=== PATIENT | female | born 1950 | race Caucasian/White ===

== ENCOUNTER 2017-02-08 09:48 | Day surgery (SDC) | payer OTHER ==
--- NOTE | 2017-02-05 20:27 | HP ---
HISTORY AND PHYSICAL: DATE OF ADMISSION/SURGERY: 02/08/17 ATTENDING PHYSICIAN: Dr. Harding (DICTATED BY LIA JAIMES) CHIEF COMPLAINT: Right knee pain. PROCEDURE: Right knee arthroscopy with partial lateral meniscectomy, possible chondroplasty, possible synovectomy. HISTORY OF PRESENT ILLNESS: Ms. Fine is a 66-year-old female with complaints of right knee pain involving the lateral aspect of her right knee. An MRI from 01/26/17 showed a lateral meniscus tear with parameniscal cyst along the joint line laterally. She has elected to proceed with surgery, which is scheduled for 02/08/17. PAST MEDICAL HISTORY: Breast cancer. PAST SURGICAL HISTORY: 1. Lumpectomy. 2. Right eyelid surgery. 3. D and C. MEDICATIONS: Vitamin D. ALLERGIES: No known drug allergies. FAMILY HISTORY: Colon cancer. SOCIAL HISTORY: She is a 66-year-old female. She lives alone. She does not smoke or use drugs. She uses occasional alcohol. REVIEW OF SYSTEMS: A complete 14-point review of systems was reviewed with the patient, is all negative and noncontributory. PHYSICAL EXAMINATION GENERAL: She is well developed, well nourished, no acute distress. VITAL SIGNS: She stands 5 feet 8 inch tall, weighs 130 pounds. Her blood pressure is 130/74 and her heart rate is 64. HEENT: Normocephalic, atraumatic. NECK: Supple. No palpable lymph nodes. CARDIO: Regular rate and rhythm. Strong S1 and S2. ABDOMEN: Soft, nontender, nondistended. MUSCULOSKELETAL: Right lower extremity skin is intact. She has a lateral mass along the joint line with a mildly positive Tinel's when you tap in that area. Positive Apley's, tenderness along the lateral joint line, negative Nahid. No varus or valgus instability, 0 to 130 degrees flexion. Overall neurovascularly intact. NEUROLOGIC: She is alert and oriented x3. Cranial nerves II through XII are intact. IMAGING STUDIES: A MRI of the right knee completed 01/26/17 shows a lateral meniscus tear with parameniscal cyst along the joint line laterally as well as some mild arthritis. ASSESSMENT AND PLAN: Ms. Fine is a 66-year-old female with complaints of right knee pain secondary to a lateral meniscus tear. She has elected to proceed with a right knee arthroscopy with partial lateral meniscectomy, possible chondroplasty, and possible synovectomy. The surgery is scheduled for 02/08/[address] Harding. She will follow up with Dr. Harding 10 to 14 days after the surgery. LIA JAIMES [id number]/[facility] #: [id number] [place]
[~2017-02-08 09:48] MED LIST: Buffered Lidocaine 1% SYR 3ML* 3 ML/SYR SYRINGE INTRADERM ONE; Dexamethasone IV* 4 MG/ML 1 ML (4 MG) IV SLOW PU ONE; Famotidine IV* 10 MG/ML 2 ML (20 mg) IV ONE
[2017-02-08] MEDS ORDERED: ceFAZolin 2 GM PREMIX(*) 2 GM/50 ML BAG IVPB ONE (10:05)
[2017-02-08] MEDS ORDERED: Famotidine IV* 10 MG/ML 2 ML (20 mg) ONE (10:05)
[2017-02-08] MEDS ORDERED: Dexamethasone IV* 4 MG/ML 1 ML (4 MG) ONE (10:05)
[2017-02-08] MEDS ORDERED: Midazolam* 1 MG/ML 5 ML VIAL (5 MG) ONE (10:28)
[2017-02-08] MEDS ORDERED: methylPREDNISolone ACETATE 80* 80 MG/ML 1 ML VIAL ONE (10:50)
[2017-02-08] MEDS ORDERED: EPINEPHrine AMP 1 MG/ML ONE (10:50)
[2017-02-08] MEDS ORDERED: Bupivacaine 0.5% SDV PF* 30 ML VIAL ONE (10:51)
[2017-02-08] MEDS ORDERED: Ondansetron INJ* 2 MG/ML VIAL ONE (11:00)
[2017-02-08] MEDS ORDERED: Lidocaine 2% PF * 5 ML VIAL ONE (11:00)
[2017-02-08] MEDS ORDERED: Propofol* 10 MG/ML 20 ML BTL IV PUSH ONE (11:00)
[2017-02-08] MEDS ORDERED: Ketorolac INJ* 30 MG/ML 1 ML VIAL ONE (11:00)
[2017-02-08] MEDS ORDERED: fentaNYL* 50 MCG/ML 5 ML VIAL (250 MCG VIAL) ONE (11:01)
[2017-02-08] MEDS ORDERED: Glycopyrrolate IV* 0.2 MG/ML 1 ML VIAL ONE (11:16)
[2017-02-08] MEDS ORDERED: Ondansetron INJ* 2 MG/ML VIAL IV PRN (11:25)
[2017-02-08] MEDS ORDERED: Scopolamine 1.5 mg* PATCH TRANSDERM PRN (11:25)
[2017-02-08] MEDS ORDERED: oxyCODONE/Acetamin 5/325 MG* TAB PO PRN (11:25)
[2017-02-08] MEDS ORDERED: DiMENhydriNATE IV* 50 MG/ML VIAL IV PUSH PRN (11:25)
[2017-02-08] MEDS ORDERED: fentaNYL* 50 MCG/ML 2 ML VIAL (100 MCG VIAL) IV PRN (11:25)
[2017-02-08 13:41] VITALS: BP 132/87
--- NOTE | 2017-02-09 07:22 | OP ---
DATE OF OPERATION: 02/08/17 [facility] DATE OF : 48 SURGEON: Nelia Harding MD ELECTRON[employer]CHNOLOGY DEPARTMENT CHAIR: LIA Lea. This certified pathology assistant was utilized throughout the procedure, during all portions of the procedure including but not limited to preparation of the leg, retraction with instruments, manipulation of the leg, and wound closure. ANESTHESIOLOGIST: Dr. Melchor Coleman. ANESTHESIA: General. PRE-OP DIAGNOSES: Right knee lateral meniscal tear and parameniscal cyst. POST-OP DIAGNOSES: Right knee lateral meniscal tear, parameniscal cyst, osteoarthritis. OPERATIVE PROCEDURE: Right knee arthroscopy with right partial lateral meniscectomy and parameniscal cyst rasping. INDICATIONS: Ms. Fine is a 66-year-old avid hiker with months of increasingly severe right lateral knee pain and a mass. Physical exam was consistent with lateral meniscal tear and parameniscal cyst. This was confirmed on MRI. The patient failed conservative treatment with activity modification, rest, and antiinflammatories. She elected to undergo right knee arthroscopy with partial lateral meniscectomy and parameniscal rasping. She understood she did have some osteoarthritis on plain radiographs. Informed consent was obtained from the patient. She understood the risks of the procedure included but were not limited to bleeding, infection, damage to nearby structures, need for further surgery, continued pain and cyst formation, stroke, heart attack, blood clot, and . She wished to proceed. The patient understood fully that the parameniscal cyst could continue after surgery, although we would attempt to rasp this intraoperatively. COMPLICATIONS: None. ESTIMATED BLOOD LOSS: Less than 25 cc. SPECIMEN: None. HARDWARE: None. INTRAOPERATIVE FINDINGS: Intraoperatively, the patient was noted to have a complex tear involving the majority of the anterior and middle lateral meniscus. This involved the white-red zone. This was linear as well as radial. Parameniscal cyst was not visualized though could be probed. This was easily rasped. The patient was noted to have some grade 3 and 4 Outerbridge cartilage changes in the lateral compartment. Medial patellofemoral compartments had grade 2 and 3 Outerbridge cartilage changes that were minimal. DESCRIPTION OF PROCEDURE: Ms. Fine was identified in the preanesthesia unit. Her right lower extremity was marked as a correct operative site. Informed consent was signed and placed in the chart. The patient was taken to the operating room and placed under general anesthesia without difficulty. Right lower extremity was prepped and draped in the usual sterile fashion. Preop time -out was made to correctly identify the patient's side and site. Appropriate perioperative antibiotics were given within 1 hour of incision. A standard anterolateral portal incision was made with a 15 blade and carried down to the capsule. The trocar was introduced. As soon as the light and water sources were turned on, there was immediate visualization of the suprapatellar pouch. A tour of the knee joint was performed. Patellofemoral compartment had no advanced arthritis or exposed subchondral bone. A small amount of cartilage fraying grade 2 and 3 involving the medial and lateral patellar facets. The medial gutter showed no loose body or significant plica. Medial compartment showed no obvious meniscal tear. Some minimal grade 2 and 3 Outerbridge cartilage changes of the medial femoral condyle. ACL and PCL appeared to be intact. The knee was placed in the figure-of-4 position. There was an obvious complex-type tear in the majority of the lateral meniscus body. Lateral femoral condyle and lateral tibial plateau had grade 3 and 4 Outerbridge cartilage changes with some exposed subchondral bone and cartilage fraying. These were grade 3 and 4 Outerbridge cartilage changes. Lateral gutter showed no obvious abnormality. Under direct visualization, a medial portal incision was made with a 15 blade. A probe was introduced and a second tour of the knee joint was performed. No further findings were noted. A shaver and radiofrequency ablation wand were used to remove the synovitis from the anterior knee joint. This allowed better visualization of the lateral compartment. The knee was placed in the figure-of- 4 position. A straight biter and shaver were used to perform partial lateral meniscectomy in the white-white and white-red zones. A smooth border of the meniscus was obtained. It was noted that there was linear as well as radial components to the meniscal tear, which was complex. A probe did show likely entry into the parameniscal cyst. A rasp was placed carefully in this space and used to roughen the edges of the meniscus and soft tissue/capsule. The knee was copiously irrigated with sterile saline. All instruments were carefully removed. Incisions were closed using 3-0 nylon suture. Intra- articular injection of 80 mg of Depo-Medrol and 6 cc of 0.25% Marcaine was placed in the knee joint. The patient's incision were closed using Xeroform, 4x4s, and Webril. Zion wrap and cold pack were placed over this. The patient's anesthesia was reversed without difficulty. She was taken to the PACU in stable condition. Intended weightbearing will be weightbearing as tolerated. Intended DVT prophylaxis will be aspirin. She will follow up in 2 weeks' time for suture removal. [id number]/[facility] #: [id number] MTDD
[2017-02-11] MEDS ORDERED: Scopolomine PATCH Remove* 1 NOTE MISC PATCH OFF ONE (11:27)
== END 2017-02-08 13:53 | disposition home or self-care (01) ==
LOC: OR 09:48
PROVIDERS: ATTEND Orthopaedic Surgery Adult Reconstructive Orthopaedic Surgery
DX: M23.200 Derangement of unspecified lateral meniscus due to old tear or injury, right knee (principal); M23.006 Cystic meniscus, unspecified meniscus, right knee; Z85.3 Personal history of malignant neoplasm of breast
CPT/HCPCS: J0171; J0690; J1040; J1100; J1885; J2250; J2405; J2704; J3010

== ENCOUNTER 2017-07-19 12:59 | Emergency (ER) | payer OTHER ==
--- NOTE | 2017-07-19 13:51 | RAD ---
Indication: Palpitations. Single frontal view of the chest performed at 1330 hours was reviewed. Comparison is made with previous exam dated July 12, 2015. No mediastinal shift is noted. Heart is of normal size and configuration. Lung israel appear clear. IMPRESSION: NO ACTIVE CARDIOPULMONARY DISEASE IS NOTED.
[2017-07-19 14:05] LABS: Hematocrit 39 % (35-47); Hemoglobin 13.5 g/dl (12.0-16.0); Mean Corpuscular HGB Conc 35 g/dl (31-36); Mean Corpuscular Hemoglobin 33 pg (27-31); Mean Corpuscular Volume 94 fL (80-97); Mean Platelet Volume 8 um3 (7.4-10.4); Red Blood Count 4.14 10^6/ul (4.0-5.4); Red Cell Distribution Width 13 % (10.5-15); White Blood Count 4.2 10^3/ul (3.5-10.8)
[2017-07-19 14:23] LABS: BUN/Creatinine Ratio 26.9 (8-20); Calcium 9.4 mg/dL (8.6-10.3); EGFR African American 94.7 (>60); EGFR Non-African American 73.7 (>60); Globulin 2.4 g/dL (2-4); Magnesium 2.2 mg/dL (1.9-2.7); Potassium 3.8 mmol/L (3.5-5.0); Total Bilirubin 0.9 mg/dL (0.2-1.0); Total Protein 6.4 g/dL (6.4-8.9)
[2017-07-19 14:55] LABS: TSH (Thyroid Stimulating Horm) 3.1 mcIU/mL (0.34-5.60)
[2017-07-19 15:00] LABS: Urine Bilirubin Negative (Negative); Urine Glucose Negative (Negative); Urine Nitrite Negative (Negative)
[2017-07-19 16:44] VITALS: BP 128/77
--- NOTE | 2017-07-21 08:13 | ED ---
Anirudh Barton Angela, scribed for Anthony Buenrostro MD on 07/19/17 at 1326 . Palpitations / Dysrhythmia - HPI Summary HPI Summary: This pt is a 66 y/o female presenting to [facility] c/o intermittent palpitations x1 month. Pt notes today she had palpitations and felt "faint" associated with it. At onset of her palpitations she was sitting at her computer. She describes the palpitations as fast and irregular. Pt denies chest pain, SOB, diplopia. She has a mild headache. There are no alleviating or aggravating factors. Pt states she was in the ED 10-15 years ago for tingling in her arm. - History of Current Complaint Chief Complaint: EDDysrhythmPalp Time Seen by Provider: 07/19/17 13:13 Hx Obtained From: Patient Onset/Duration: Lasting Weeks Timing: Intermittent Episodes Lasting: Character: Fast, Irregular Aggravating: Nothing Alleviating: Nothing - Allergy/Home Medications Allergies/Adverse Reactions: Allergies Allergy/AdvReac Type Severity Reaction Status Date / Time No Known Allergies Allergy Verified 02/08/17 10:14 PMH/Surg Hx/FS Hx/Imm Hx Endocrine/Hematology History: Denies: Hx Diabetes Cardiovascular History: Denies: Hx Hypertension, Hx Pacemaker/ICD Respiratory History: Denies: Hx Asthma GI History: Reports: Hx Irritable Bowel - , resolved Musculoskeletal History: Reports: Hx Arthritis - right knee Sensory History: Reports: Hx Contacts or Glasses - glasses Denies: Hx Hearing Aid Opthamlomology History: Reports: Hx Contacts or Glasses - glasses Psychiatric History: Denies: Hx Anxiety, Hx Panic Disorder - Cancer History Hx Chemotherapy: No Hx Radiation Therapy: No - Surgical History Surgery Procedure, Year, and Place: D&C; RIGHT EYELID SURGERY-MOLE/BASAL CELL REMOVED; LUMPECTOMY (LEFT BREAST) JUL 2016; Hx Anesthesia Reactions: No Infectious Disease History: No Infectious Disease History: Denies: Traveled Outside the [place] in Last 30 Days - Social History Alcohol Use: Daily Alcohol Amount: 1 DAILY Substance Use Type: Reports: None Smoking Status (MU): Never Smoked Tobacco Have You Smoked in the Last Year: No Review of Systems Negative: Fever, Chills Negative: Diplopia Positive: Palpitations. Negative: Chest Pain Negative: Shortness Of Breath Positive: Headache - mild All Other Systems Reviewed And Are Negative: Yes Physical Exam - Summary Physical Exam Summary: VITAL SIGNS: Reviewed. GENERAL: Patient is a well-developed and nourished female who is lying comfortable in the stretcher. Patient is not in any acute respiratory distress. HEAD AND FACE: No signs of trauma. No ecchymosis, hematomas or skull depressions. No sinus tenderness. EYES: PERRLA, EOMI x 2, No injected conjunctiva, no nystagmus. EARS: Hearing grossly intact. Ear canals and tympanic membranes are within normal limits. MOUTH: Oropharynx within normal limits. NECK: Supple, trachea is midline, no adenopathy, no JVD, no carotid bruit, no c- spine tenderness, neck with full ROM. CHEST: Symmetric, no tenderness at palpation LUNGS: Clear to auscultation bilaterally. No wheezing or crackles. CVS: Regular rate and rhythm, S1 and S2 present, no murmurs or gallops appreciated. ABDOMEN: Soft, non-tender. No signs of distention. No rebound no guarding, and no masses palpated. Bowel sounds are normal. EXTREMITIES: FROM in all major joints, no edema, no cyanosis or clubbing. NEURO: Alert and oriented x 3. No acute neurological deficits. Speech is normal and follows commands. SKIN: Dry and warm Triage Information Reviewed: Yes Vital Signs On Initial Exam: Initial Vitals Temp Pulse Resp BP Pulse Ox 96.1 F 74 16 134/74 98 07/19/17 13:04 07/19/17 13:04 07/19/17 13:04 07/19/17 13:04 07/19/17 13:04 Vital Signs Reviewed: Yes Diagnostics - Vital Signs Vital Signs Temp Pulse Resp BP Pulse Ox 07/19/17 13:04 96.1 F 74 16 134/74 98 - Laboratory Lab Results: Lab Results 07/19/17 07/19/17 07/19/17 Range/Units 13:52 13:52 13:52 WBC 4.2 (3.5-10.8) 10^3/ul RBC 4.14 (4.0-5.4) 10^6/ul Hgb 13.5 (12.0-16.0) g/dl Hct 39 (35-47) % MCV 94 (80-97) fL MCH 33 H (27-31) pg MCHC 35 (31-36) g/dl RDW 13 (10.5-15) % Plt Count 196 (150-450) 10^3/ul MPV 8 (7.4-10.4) um3 Neut % (Auto) 66.6 (38-83) % Lymph % (Auto) 26.7 (25-47) % [place] % (Auto) 5.1 (1-9) % Eos % (Auto) 1.0 (0-6) % Baso % (Auto) 0.6 (0-2) % Absolute Neuts (auto) 2.8 (1.5-7.7) 10^3/ul Absolute Lymphs (auto) 1.1 (1.0-4.8) 10^3/ul Absolute Monos (auto) 0.2 (0-0.8) 10^3/ul Absolute Eos (auto) 0 (0-0.6) 10^3/ul Absolute Basos (auto) 0 (0-0.2) 10^3/ul Absolute Nucleated RBC 0 10^3/ul Nucleated RBC % 0 Sodium 136 (133-145) mmol/L Potassium 3.8 (3.5-5.0) mmol/L Chloride 102 (101-111) mmol/L Carbon Dioxide 29 (22-32) mmol/L Anion Gap 5 (2-11) mmol/L BUN 21 (6-24) mg/dL Creatinine 0.78 (0.51-0.95) mg/dL Est GFR ( Amer) 94.7 (>60) Est GFR (Non-Af Amer) 73.7 (>60) BUN/Creatinine Ratio 26.9 H (8-20) Glucose 106 H (70-100) mg/dL Lactic Acid (0.5-2.0) mmol/L Calcium 9.4 (8.6-10.3) mg/dL Magnesium 2.2 (1.9-2.7) mg/dL Total Bilirubin 0.90 (0.2-1.0) mg/dL AST 14 (13-39) U/L ALT 11 (7-52) U/L Alkaline Phosphatase 66 (34-104) U/L Total Creatine Kinase 53 (10-223) U/L CK-MB (CK-2) 1.6 (0.6-6.3) ng/mL Troponin I 0.00 (<0.04) ng/mL B-Natriuretic Peptide 45 ( - 100) pg/mL Total Protein 6.4 (6.4-8.9) g/dL Albumin 4.0 (3.2-5.2) g/dL Globulin 2.4 (2-4) g/dL Albumin/Globulin Ratio 1.7 (1-3) TSH 3.10 (0.34-5.60) mcIU/mL Urine Color Urine Appearance Urine pH (5-9) Ur Specific Staples (1.010-1.030) Urine Protein (Negative) Urine Ketones (Negative) Urine Blood (Negative) Urine Nitrate (Negative) Urine Bilirubin (Negative) Urine Urobilinogen (Negative) Ur Leukocyte Esterase (Negative) Urine Glucose (Negative) 07/19/17 07/19/17 Range/Units 13:52 14:28 WBC (3.5-10.8) 10^3/ul RBC (4.0-5.4) 10^6/ul Hgb (12.0-16.0) g/dl Hct (35-47) % MCV (80-97) fL MCH (27-31) pg MCHC (31-36) g/dl RDW (10.5-15) % Plt Count (150-450) 10^3/ul MPV (7.4-10.4) um3 Neut % (Auto) (38-83) % Lymph % (Auto) (25-47) % [place] % (Auto) (1-9) % Eos % (Auto) (0-6) % Baso % (Auto) (0-2) % Absolute Neuts (auto) (1.5-7.7) 10^3/ul Absolute Lymphs (auto) (1.0-4.8) 10^3/ul Absolute Monos (auto) (0-0.8) 10^3/ul Absolute Eos (auto) (0-0.6) 10^3/ul Absolute Basos (auto) (0-0.2) 10^3/ul Absolute Nucleated RBC 10^3/ul Nucleated RBC % Sodium (133-145) mmol/L Potassium (3.5-5.0) mmol/L Chloride (101-111) mmol/L Carbon Dioxide (22-32) mmol/L Anion Gap (2-11) mmol/L BUN (6-24) mg/dL Creatinine (0.51-0.95) mg/dL Est GFR ( Amer) (>60) Est GFR (Non-Af Amer) (>60) BUN/Creatinine Ratio (8-20) Glucose (70-100) mg/dL Lactic Acid 0.9 (0.5-2.0) mmol/L Calcium (8.6-10.3) mg/dL Magnesium (1.9-2.7) mg/dL Total Bilirubin (0.2-1.0) mg/dL AST (13-39) U/L ALT (7-52) U/L Alkaline Phosphatase (34-104) U/L Total Creatine Kinase (10-223) U/L CK-MB (CK-2) (0.6-6.3) ng/mL Troponin I (<0.04) ng/mL B-Natriuretic Peptide ( - 100) pg/mL Total Protein (6.4-8.9) g/dL Albumin (3.2-5.2) g/dL Globulin (2-4) g/dL Albumin/Globulin Ratio (1-3) TSH (0.34-5.60) mcIU/mL Urine Color Straw Urine Appearance Clear Urine pH 7.0 (5-9) Ur Specific Staples 1.004 L (1.010-1.030) Urine Protein Negative (Negative) Urine Ketones Negative (Negative) Urine Blood Negative (Negative) Urine Nitrate Negative (Negative) Urine Bilirubin Negative (Negative) Urine Urobilinogen Negative (Negative) Ur Leukocyte Esterase Negative (Negative) Urine Glucose Negative (Negative) Result Diagrams: 07/19/17 13:52 07/19/17 13:52 Lab Statement: Any lab studies that have been ordered have been reviewed, and results considered in the medical decision making process. - Radiology Chest XR Xray Interpretation: No Acute Changes - IMPRESSION: No active cardiopulmonary disease is noted. ED physician has reviewed this radiology report and agrees. Radiology Interpretation Completed By: Radiologist - EKG 1313 Cardiac Rate: NL - 69 bpm EKG Rhythm: Sinus Rhythm EKG Interpretation: No ST elevation Course/Dx - Course Assessment/Plan: This pt is a 66 y/o female presenting to [facility] c/o intermittent palpitations x1 month. Pt notes today she had palpitations and felt "faint" associated with it. At onset of her palpitations she was sitting at her computer. She describes the palpitations as fast and irregular. Pt denies chest pain, SOB, diplopia. She has a mild headache. There are no alleviating or aggravating factors. Pt states she was in the ED 10-15 years ago for tingling in her arm. Test results without any significant abnormalities. Chest XR reveals no active cardiopulmonary disease is noted. EKG shows NSR without ST elevation. I believe the pt will benefit from outpatient management. Pt is asymptomatic. She will be discharged to follow up with PCP for outpatient management. Pt is hemodynamically stable, alert and oriented x3. - Diagnoses Differential Diagnosis/HQI/PQRI: Positive: Hypokalemia, Paroxymal SVT, V-Tach Provider Diagnoses: Arrhythmia, Palpitations Discharge - Discharge Plan Condition: Stable Disposition: HOME Patient Education Materials: Palpitations (ED) Referrals: Andi Rodriguez MD [Primary Care Provider] - Additional Instructions: Please follow up with your primary provider. The documentation as recorded by the Anirudh oakes Angela accurately reflects the service I personally performed and the decisions made by me, Anthony Buenrostro MD.
== END 2017-07-19 16:43 | disposition home or self-care (01) ==
LOC: ED 12:59
DX: I49.9 Cardiac arrhythmia, unspecified (principal); R00.2 Palpitations
CPT/HCPCS: 36415; 71010; 80053; 81003; 82550; 82553; 83605; 83735; 83880; 84443; 84484; 85025; 93005; 99282

== ENCOUNTER 2017-10-09 08:16 | Observation (INO) | payer MEDICARE, OTHER ==
[2017-10-09] MEDS ORDERED: NS 0.9% 1000 ML* 1,000 ML IV SCH (09:45)
[2017-10-09] MEDS ORDERED: ceFAZolin 2 GM PREMIX (*) 2 GM/50 ML BAG IVPB ONE (10:00)
[2017-10-09] MEDS ORDERED: ceFAZolin VIAL 1 GM in NS *SYRINGE * * 10 ML ONE (10:00)
[2017-10-09 10:05] LABS: ABS Basophils 0 10^3/ul (0-0.2); ABS Eosinophils 0 10^3/ul (0-0.6); ABS Lymphocytes 1.1 10^3/ul (1.0-4.8); ABS Monocytes 0.2 10^3/ul (0-0.8); ABS Nucleated RBC 0 10^3/ul; Eosinophil % 1.2 % (0-6); Hematocrit 39 % (35-47); Hemoglobin 13.8 g/dl (12.0-16.0); Lymphocyte % 33.6 % (25-47); Mean Corpuscular HGB Conc 35 g/dl (31-36); Mean Corpuscular Hemoglobin 33 pg (27-31); Mean Corpuscular Volume 94 fL (80-97); Mean Platelet Volume 7 um3 (7.4-10.4); Nucleated Red Blood Cells % 0.1; Platelet Count 195 10^3/ul (150-450); Red Blood Count 4.17 10^6/ul (4.0-5.4); Red Cell Distribution Width 13 % (10.5-15); White Blood Count 3.4 10^3/ul (3.5-10.8)
[2017-10-09 10:17] LABS: INR 0.97 (0.77-1.02)
[2017-10-09 10:18] LABS: EGFR Non-African American 63.9 (>60)
[2017-10-09] MEDS ORDERED: Naloxone* 0.4 MG/ML 1 ML VIAL ONE (11:04)
[2017-10-09] MEDS ORDERED: fentaNYL* 50 MCG/ML 2 ML VIAL (100 MCG VIAL) ONE (11:04)
[2017-10-09] MEDS ORDERED: Lidocaine 1% INJ* 10 MG/ML 30 ML SDV ONE (11:04)
[2017-10-09] MEDS ORDERED: Midazolam* 1 MG/ML 10 ML VIAL (10 MG) ONE (11:04)
[2017-10-09] MEDS ORDERED: Flumazenil* 0.1 MG/ML 5 ML MDV ONE (11:04)
[2017-10-09] MEDS ORDERED: Iohexol 300 (CONTRAST) 10 ML SDV ONE (11:57)
[2017-10-09] MEDS ORDERED: Acetaminophen TAB* 325 MG PO PRN (12:38)
[2017-10-09] MEDS ORDERED: oxyCODONE/Acetamin 5/325 MG* TAB PO PRN (12:38)
--- NOTE | 2017-10-09 12:48 | HP ---
CC: Andi Rodriguez MD; Parveen Henderson DO ADMISSION HISTORY AN PHYSICAL: DATE OF ADMISSION: 10/09/17 INDICATION FOR ADMISSION: Pacemaker implantation. HISTORY OF PRESENT ILLNESS: The patient is a 67-year-old female, who is consulted by Dr. Henderson back in July for episodes for palpitations and near syncope. The patient reports 2 episodes of near-s yncope, one occurred while she was standing at her computer and felt like she was going to pass out. Another occurred a couple of months later. The patient also describes episodes of palpitations. Th e patient was ordered to have an echocardiogram and an event monitor. Her echocardiogram showed norm al LV size and systolic function. No significant valvular abnormalities on her event monitor. She h ad an episode of prolonged bradycardia with a pause of 4.2 seconds. This occurred while she was awak e. Her heart rate went all the way down to 30 beats per minute. The patient was asymptomatic at raza t time. With the patient's symptoms and her documented prolonged bradycardia and 4.2 second pause, i t was recommend the patient undergo permanent pacemaker implantation. In speaking with the patient s he denies any fevers or chills. She denies any recent episodes of lightheadedness or dizziness. She denies any anginal type symptoms. PAST MEDICAL HISTORY: Significant for breast cancer for which she underwent treatment, also primary osteoarthritis. PAST SURGICAL HISTORY: Breast lumpectomy, colonoscopies. MEDICATIONS: None. ALLERGIES: None. FAMILY HISTORY: Diabetes and heart disease. Father of myocardial infarction. Mother of Pa rkinson's disease. SOCIAL HISTORY: She is single. She lives alone. 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 She denies tobacco or alcohol use. She does exercise regularly. PHYSICAL EXAMINATION VITAL SIGNS: Height is 5 feet 7 inches, weight is 128 pounds, heart rate is 60. Blood pressure 140/7 2, respiratory rate is 16, oxygen saturation 95% on room air. HEENT: Sclerae anicteric. Oropharynx is pink without erythema. Carotids are 2+ without bruits. NECK: JVD is normal. Thyroid is normal. LUNGS: Clear to auscultation bilaterally. No dullness to percussion. CARDIAC: S1 and S2 without any murmurs, rubs or gallops. PMI is normal. ABDOMEN: Soft, nontender, nondistended with normoactive bowel sounds. EXTREMITIES: Showed no edema. She has 2+ pulses throughout. NEUROLOGIC: The patient is awake, alert and oriented. She moves all 4 extremities equally. LABORATORY STUDIES: White count 3.4, other CBC is normal. Chemistries within normal limits. BUN 1 6, creatinine 0.88. IMPRESSION: This a 67-year-old female who has been having episodes of palpitations and had 2 near sy ncopal episodes that were quite concerning. Her event monitor did show a prolonged episode of bradyc ardia with a 4.2-second pause during the day. It was unclear whether the patient was sleeping at raza t time however it was 7 o'clock at night. RECOMMENDATIONS: The patient to undergo permanent pacemaker implantation for bradycardia and near sy ncope. Risks and benefits were described in great detail with the patient and discussed with Dr. Linda schaeffer. [id number]/[facility] #: [id number]
--- NOTE | 2017-10-09 15:25 | RAD ---
Indication: Status post pacemaker placement. Single frontal view of the chest performed at 1346 hours was reviewed. Comparison is made with previous exam dated July 19, 2017. No mediastinal shift is noted. Heart is of normal size and configuration. Pacemaker leads are in place. No pneumothorax is identified. Lungs are clear IMPRESSION: NO ACTIVE CARDIOPULMONARY DISEASE IS NOTED. HYPERINFLATED LUNG CARLSON ARE NOTED. NO DEFINITE PNEUMONIA IS IDENTIFIED.
[2017-10-09] MEDS ORDERED: Zolpidem TAB* 5 MG PO ONE (21:00)
[2017-10-09] MEDS: ceFAZolin 1 GM VIAL(*) 1 GM in NS 0.9% 50 ML* 50 ML IVPB SCH (21:13)
[2017-10-10] MEDS: ceFAZolin 1 GM VIAL(*) 1 GM in NS 0.9% 50 ML* 50 ML IVPB SCH (04:06)
[2017-10-10 08:09] VITALS: BP 110/71
--- NOTE | 2017-10-10 08:26 | RAD ---
INDICATION: Post pacemaker placement. COMPARISON: October 09, 2017 TECHNIQUE: Dual energy PA and routine lateral views of the chest were obtained. REPORT: Elevated lung volumes and patchy rarefaction of the mid to upper lung zone interstitial markings. Negative for pulmonary infiltrate, pleural effusion, pneumothorax. Unchanged position of the RIGHT atrial and RIGHT ventricular level pacemaker leads. Negative for cardiomegaly. Unremarkable central pulmonary vasculature and mediastinal contours. LEFT breast surgical clips. IMPRESSION: Stigmata of obstructive lung disease. No acute pulmonary or cardiac process evident.
--- NOTE | 2017-10-10 13:57 | OP ---
CC: Dr. Henderson * DATE OF OPERATION: 10/09/17 - ROOM #452 DATE OF : 48 SURGEON: Leno Do MD ANESTHESIA: Local anesthesia with conscious sedation. PRE-OP DIAGNOSES: Syncope, heart block. POST-OP DIAGNOSES: Syncope, heart block. OPERATIVE PROCEDURE: Dual-chamber pacemaker implantation. INDICATIONS: The patient is a 67-year-old female, who has had 2 near syncopal episodes that were unexplained. The patient had a recent event monitor, which showed a long run of non-conducted P waves with a ventricular pause of 4.2 seconds. Permanent pacemaker was recommended. ESTIMATED BLOOD LOSS: None. COMPLICATIONS: None. DESCRIPTION OF PROCEDURE: The patient was brought to the procedure room in a fasting state. Informed consent had been obtained prior to the procedure. All labs had been reviewed. The patient was placed supine on the procedure table. Her left deltopectoral area was cleaned and draped in the usual fashion. 1% lidocaine was used for local anesthesia. The axillary vein was entered by a modified Seldinger technique and a guidewire was placed. A second guidewire was placed under the same technique. A 4-cm incision was made in the pectoral area. Blunt dissection was carried on to the pectoral fascia. A small pocket was fashioned for the pacemaker. Over the first guidewire, an 8-Guyanese sheath introducer was placed through which a right ventricular lead was advanced at the RV apex. The right ventricular lead was a [employer], model [id number], serial number [id number]. The ventricular lead had an R-wave sensitivity of 9, impedance 996 ohms, threshold 1 volt at 0.4 msec. The ventricular lead was sutured at the pectoral fascia using 0 silk. Over the second guidewire, an 8-Guyanese sheath introducer was placed through which a right atrial lead was advanced to the high right atrium. The right atrial lead was a [employer], model [id number] , serial number [id number]. The atrial lead had a P-wave sensitivity of 3.4, impedance 600 ohms, threshold 0.9 volts at 0.4 msec. The pocket was flushed. A generator was attached appropriately to the atrial and ventricular lead. The generator was a [employer], model [id number], serial number [id number]. The device was placed in the pocket. The surgical incision was closed in 3 layers. The patient tolerated the procedure well with no complications. [id number]/[facility] #: [id number] AUGUSTINA
--- NOTE | 2017-10-10 21:14 | DS ---
CC: Dr. Henderson; Dr. Rodriguez * DISCHARGE SUMMARY: DATE OF ADMISSION: 10/09/17 DATE OF DISCHARGE: 10/10/17 REASON FOR ADMISSION: Syncope, sick sinus syndrome. HOSPITAL COURSE: This is a 67-year-old woman seen for syncopal episodes and was documented to have significant sinus pauses up to 4.2 seconds on an event monitor. Because of those findings, she was referred for pacemaker implantation with Dr. Do. She was admitted on 10/09/17, underwent pacemaker implantation with a [employer] MRI 2272 pacemaker. She was programed to DDD at 60 with a max upper tracking rate of 120, thresholds were adequate. Her chest x-ray revealed no evidence of pneumothorax and she is anticipating discharge this morning. PAST MEDICAL HISTORY: Includes breast cancer, status post breast lumpectomy. ALLERGIES: She has no allergies. MEDICATIONS: She takes no medications. PHYSICAL EXAMINATION: General: She is a well-developed, well-nourished female , in no apparent distress. No drainage from the pacemaker site. Vital Signs: Blood pressure 110/71, pulse is 60, temperature 97.7. Cardiac: S1 and S2 without murmurs, gallops, or rubs. Chest: Clear. Extremities: No edema. IMPRESSION: Ms. Fine has a history of near syncope related to sinus node dysfunction, is now status post pacemaker implantation. I reviewed her questions with her and the plan is as following; 1. She is to be discharged home later this morning. 2. She is to follow up with Dr. Do within 1 week. 3. She is to arrange for repeat pacemaker check in 4 to 6 weeks' time. She plans on traveling to [place] for the next 2 months and I encouraged her to work out the logistics of that evaluation with Dr. Do and Dr. Henderson. DISCHARGE MEDICATIONS: Include acetaminophen p.r.n. [id number]/[facility] #: [id number] MTDD
== END 2017-10-10 11:15 | disposition home or self-care (01) ==
LOC: CHICATH 08:16 → MEDTELE 12:38
PROVIDERS: ADMIT Specialist; ATTEND Specialist
PROC: 02H63JZ Insertion of Pacemaker Lead into Right Atrium, Percutaneous Approach (ICD-10-PCS; 2017-10-09)
PROC: 02HK3JZ Insertion of Pacemaker Lead into Right Ventricle, Percutaneous Approach (ICD-10-PCS; 2017-10-09)
PROC: 0JH606Z Insertion of Pacemaker, Dual Chamber into Chest Subcutaneous Tissue and Fascia, Open Approach (ICD-10-PCS; principal; 2017-10-09 10:00)
DX: I44.30 Unspecified atrioventricular block (principal); E78.5 Hyperlipidemia, unspecified; R42 Dizziness and giddiness; R55 Syncope and collapse; I49.5 Sick sinus syndrome
CPT/HCPCS: 36415; 71045; 71046; 80048; 85025; 85610; 85730; 93005; A9270-GY; G0378; J0690; J2250; J2310; J3010; Q9967

== ENCOUNTER 2020-01-08 11:07 | Emergency (ER) | payer MEDICARE, OTHER ==
--- OUTSIDE RECORDS SUMMARY | 2020-01-08 11:24 | XMS REPORT | Summary of Care ---
:1950 Author Organization [facility] Address [address] [place] [address] Care Team Providers Name Role Phone Pinky Earl MD Primary Care Provider Encounter Details Date Type Department Care Team Description 11/11/2019 Hospital Encounter [facility] Abnormal brain scan; [address] [facility] Migraine with aura, not intractable, with status migrainosus; 3rd Floor Mild cognitive impairment; [place], [place] Migraine with aura and with status migrainosus, not intractable; [id number] Cognitive impairment, mild, so stated; [phone] Abnormal finding of skull or head x-ray Allergies Not on Filedocumented as of this encounter (statuses as of 11/12/2019) Medications Not on filedocumented as of this encounter (statuses as of 11/12/2019) Active Problems Not on filedocumented as of this encounter (statuses as of 11/12/2019) Social History Tobacco Use Types Packs/Day Years Used Date Never Assessed Sex Assigned at Date Recorded Not on file Job Start Date Occupation Industry Not on file Not on file Not on file Travel History Travel Start Travel End No recent travel history available. documented as of this encounter Last Filed Vital Signs Not on filedocumented in this encounter Plan of Treatment Name Type Priority Associated Diagnoses Date/Time Cardiac Device Cardiac Services Routine 11/11/2019 4:00 PM (Implant) Check EST Health Maintenance Due Date Last Done Comments Hepatitis C Screening (B. 1950 3492-1030) MMR Vaccines (1 of 1 - Standard 1951 series) Varicella Vaccines (1 of 2 - 1951 2-dose childhood series) DTaP,Tdap,and Td Vaccines (1 - 1956 Tdap) Breast Cancer Screening 2 years 1999 Colon Cancer Screening 10 yrs 1999 Zoster Vaccines (1 of 2) 1999 Osteoporosis Screening 2 yr 2014 Pneumococcal Vaccine: 65+ Years (1 2014 of 2 - PCV13) Influenza Vaccine 07/01/2019 HIB Vaccines Aged Out No longer eligible based on patient's age to complete this topic Hepatitis A Vaccines Aged Out No longer eligible based on patient's age to complete this topic Hepatitis B Vaccines Aged Out No longer eligible based on patient's age to complete this topic IPV Vaccines Aged Out No longer eligible based on patient's age to complete this topic Pneumococcal Vaccine: Pediatrics Aged Out No longer eligible based on (0 to 5 Years) and At-Risk patient's age to complete this Patients (6 to 64 Years) topic documented as of this encounter Implants Implanted Type Area Grounds Person Device Shelf Model / Identifier Expiration Date Serial / Lot Lead-10/09/2017 Lead [employer] [id number] / Implanted: 10/09/2017 (Quantity not on file) [employer] [id number] / Description:Atrial lead Lead-10/09/2018 Lead [employer], [employer]ENDRIL MRI [id number] / Implanted: 10/09/2018 (Quantity not on file) INC [id number] / Description:V lead Pacemaker-10/09/2017 Pacemaker [employer], ASSURITY MRI 2272 / Implanted: 10/09/2017 (Quantity not on file) [id number] / Description:Implanted by Dr. Ed Do in [facility] documented as of this encounter Procedures Procedure Name Priority Date/Time Associated Comments Diagnosis MR ANGIOGRAPHY HEAD Routine 11/11/2019 4:55 Abnormal brain scan Results for this WITH AND WITHOUT PM EST Migraine with aura procedure are in CONTRAST [id number] and with status the results migrainosus, not section. intractable Cognitive impairment, mild, so stated Abnormal finding of skull or head x-ray MR BRAIN WITH AND Routine 11/11/2019 4:55 Abnormal brain scan Results for this WITHOUT CONTRAST PM [place] [id number] not intractable, the results with status section. migrainosus Mild cognitive impairment CARDIAC DEVICE Routine 11/11/2019 4:00 (IMPLANT) CHECK PM EST documented in this encounter Results MR Angiography Head with and without Contrast (11/11/2019 4:55 PM EST) Specimen Impressions Performed At IMPRESSION: [facility] 1. Major intracranial cerebral arteries demonstrate no proximal flow-limiting stenosis or occlusion. There is no aneurysm. Narrative Performed At MR ANGIOGRAPHY HEAD WITH AND WITHOUT CONTRAST [id number] [facility] INDICATION: 69 years Female. Migraine with aura and with status migrainosus, not intractable ABNORMAL BRAIN SCAN; Cognitive impairment, mild, so stated COMPARISON: No prior studies for comparison. TECHNIQUE: MRA of the head was performed using 3-D asct-xw-ioocfr technique without and with gadolinium intravenous contrast. 5.5 mL Gadavist IV contrast administered. 3-D MIP reconstruction was performed in multiple projections. FINDINGS: Suboptimal study with motion artifact limiting evaluation. Intracranial internal carotid artery segments are patent. Middle cerebral arteries are patent bilaterally. Anterior cerebral arteries are patent bilaterally. Anterior communicating artery is patent. Left posterior communicating artery is formed and patent. Right posterior communicating artery is formed and patent. Posterior cerebral arteries are patent bilaterally. Vertebral arteries are patent bilaterally. Basilar artery is patent. There is no aneurysm. Procedure Note Interface, Received Via [employer] - 11/11/2019 5:58 PM EST MR ANGIOGRAPHY HEAD WITH AND WITHOUT CONTRAST [id number] INDICATION: 69 years Female. Migraine with aura and with status migrainosus, not intractable ABNORMAL BRAIN SCAN; Cognitive impairment, mild, so stated COMPARISON: No prior studies for comparison. TECHNIQUE: MRA of the head was performed using 3-D hnww-jo-nggmac technique without and with gadolinium intravenous contrast. 5.5 mL Gadavist IV contrast administered. 3-D MIP reconstruction was performed in multiple projections. FINDINGS: Suboptimal study with motion artifact limiting evaluation. Intracranial internal carotid artery segments are patent. Middle cerebral arteries are patent bilaterally. Anterior cerebral arteries are patent bilaterally. Anterior communicating artery is patent. Left posterior communicating artery is formed and patent. Right posterior communicating artery is formed and patent. Posterior cerebral arteries are patent bilaterally. Vertebral arteries are patent bilaterally. Basilar artery is patent. There is no aneurysm. IMPRESSION: 1. Major intracranial cerebral arteries demonstrate no proximal flow- limiting stenosis or occlusion. There is no aneurysm. Performing Organization Address City/State/Zipcode Phone Number [facility] [address] [place] [address] MR Brain with and without Contrast (11/11/2019 4:55 PM EST) Specimen Impressions Performed At IMPRESSION: [facility] 1. There is no mass, hemorrhage, or acute infarct. There are nonspecific scattered small foci of the loida, cerebral deep and subcortical white matter, which may be compatible with mild/moderate chronic ischemic microvascular changes. Underlying migraine vasculopathy not excluded. Narrative Performed At MR BRAIN WITH AND WITHOUT CONTRAST [id number] [facility] INDICATION: 69 years Female. ABNORMAL BRAIN SCAN. Migraine with aura with status migrainosus. Mild cognitive impairment. COMPARISON: No prior studies for comparison. TECHNIQUE: Multiple customized pulse sequences without and with contrast performed according to standard protocol. Intravenous contrast dosage 5.5 mL Gadavist according to standard protocol was administered and documented in the Epic system. FINDINGS: There is mild cerebral volume loss. There are nonspecific scattered small foci of FLAIR/T2 prolongation of the loida, cerebral deep and subcortical white matter, which may be compatible with mild/moderate chronic ischemic microvascular changes. Ventricles and basilar cisterns are within normal limits. There are no intra-axial or extra-axial masses or fluid collections. There is no midline shift. No hemorrhage is present. There is no acute infarct. Pituitary gland is normal in morphology and signal. Major flow voids at base of brain and dural sinuses are within normal limits. The intraorbital structures are grossly normal in morphology. Procedure Note Interface, Received Via [employer] System - 11/11/2019 5:49 PM EST MR BRAIN WITH AND WITHOUT CONTRAST [id number] INDICATION: 69 years Female. ABNORMAL BRAIN SCAN. Migraine with aura with status migrainosus. Mild cognitive impairment. COMPARISON: No prior studies for comparison. TECHNIQUE: Multiple customized pulse sequences without and with contrast performed according to standard protocol. Intravenous contrast dosage 5.5 mL Gadavist according to standard protocol was administered and documented in the Epic system. FINDINGS: There is mild cerebral volume loss. There are nonspecific scattered small foci of FLAIR/T2 prolongation of the loida, cerebral deep and subcortical white matter, which may be compatible with mild/moderate chronic ischemic microvascular changes. Ventricles and basilar cisterns are within normal limits. There are no intra-axial or extra-axial masses or fluid collections. There is no midline shift. No hemorrhage is present. There is no acute infarct. Pituitary gland is normal in morphology and signal. Major flow voids at base of brain and dural sinuses are within normal limits. The intraorbital structures are grossly normal in morphology. IMPRESSION: 1. There is no mass, hemorrhage, or acute infarct. There are nonspecific scattered small foci of the loida, cerebral deep and subcortical white matter, which may be compatible with mild/moderate chronic ischemic microvascular changes. Underlying migraine vasculopathy not excluded. Performing Organization Address City/State/Zipcode Phone Number [facility] [address] [phone] documented in this encounter Visit Diagnoses Diagnosis Abnormal brain scan Other nonspecific abnormal result of function study of brain and central nervous system Migraine with aura, not intractable, with status migrainosus Mild cognitive impairment Mild cognitive impairment, so stated Migraine with aura and with status migrainosus, not intractable Migraine with aura, with intractable migraine, so stated, with status migrainosus Cognitive impairment, mild, so stated Mild cognitive impairment, so stated Abnormal finding of skull or head x-ray Nonspecific (abnormal) findings on radiological and other examination of skull and head documented in this encounter Administered Medications Medication Order MAR Action Action Date Dose Rate Site gadobutrol (GADAVIST) Given by IV push 11/11/2019 4:45 PM 5.5 mLs Right Arm contrast injection 5.5 mL EST 5.5 mL (rounded from 5.9 mL = 0.1 mL/kg 59 kg Order-specific weight), Intravenous, 1 TIME IMAGING, 11/11/19 at 1615, For 1 dose, Imaging Protocol, Do not mix or administer in the same IV line with other medications., documented in this encounter
--- NOTE | 2020-01-08 11:40 | ED ---
Complex/Multi-Sys Presentation - HPI Summary HPI Summary: 69 year old F presenting to [facility] with a chief complaint of left upper arm pressure and tightness, tingling in her left fingers which she describes as feeling like her hand is tired, and tingling in the left side of her face since last night. Patient reports some chest discomfort, a slight headache, and having auras recently. She states that her symptoms have slightly improved today. The patient rates the pain 2/10 in severity. Symptoms aggravated by nothing. Symptoms alleviated by nothing. Patient denies chest tingling, shortness of breath, diaphoresis, or dental pain. She took a full Aspirin prior to her arrival. She reports that she was gardening yesterday. The patient spoke with an CYLINDER HEAD ASSEMBLER at her PCP's office who advised the patient to come to the emergency department for further evaluation. The patient denies any history of a CVA. 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 Patient's medication as entered in EMR by pig conveyor operator reviewed this visit. Allergy list reviewed. - History Of Current Complaint Chief Complaint: EDGeneral Time Seen by Provider: 01/08/20 11:31 Hx Obtained From: Patient Onset/Duration: Lasting Hours Timing: Constant Severity Currently: Mild Aggravating Factor(s): None Alleviating Factor(s): None Associated Signs And Symptoms: Positive: Headache, Chest Pain, Other - Auras. Negative: SOB, Diaphoresis - Allergies/Home Medications Allergies/Adverse Reactions: Allergies Allergy/AdvReac Type Severity Reaction Status Date / Time No Known Allergies Allergy Verified 01/08/20 11:12 Home Medications: Home Medications Cholecalciferol TAB* [Vitamin D TAB*] 2,000 units PO DAILY 06/09/16 [History Confirmed 01/08/20] Amlodipine 2.5 mg TAB (NF) 2.5 mg PO DAILY 01/08/20 [History Confirmed 01/08/20] Glucosa Cruz 2Kcl/Chondroitin Cruz [Glucosamine & Chondroitin Cap] 1 each PO DAILY 01/08/20 [History Confirmed 01/08/20] Multivitamins/Minerals TAB* [Theragran/minerals TAB*] 1 tab PO DAILY 01/08/20 [ History Confirmed 01/08/20] PMH/Surg Hx/FS Hx/Imm Hx Endocrine/Hematology History: Denies: Hx Anticoagulant Therapy - Took ASA today and tomorrow, Hx Diabetes Cardiovascular History: Reports: Hx Pacemaker/ICD - 10/2017 Denies: Hx Hypertension Respiratory History: Denies: Hx Asthma GI History: Reports: Hx Irritable Bowel - , resolved Musculoskeletal History: Reports: Hx Arthritis - right knee Sensory History: Reports: Hx Contacts or Glasses Denies: Hx Hearing Aid Opthamlomology History: Reports: Hx Contacts or Glasses Neurological History: Denies: Hx CVA Psychiatric History: Denies: Hx Anxiety, Hx Panic Disorder - Cancer History Cancer Type, Location and Year: Breast Ca Hx Chemotherapy: No Hx Radiation Therapy: Yes - Surgical History Surgical History: Yes Surgery Procedure, Year, and Place: D&C;. RIGHT EYELID SURGERY-MOLE/BASAL CELL REMOVED;. LUMPECTOMY (LEFT BREAST) JUL 2016;. PACEMAKER. dcis left Hx Anesthesia Reactions: No Infectious Disease History: No Infectious Disease History: Denies: Traveled Outside the [place] in Last 30 Days - Family History Known Family History: Positive: Cardiac Disease - Father [place], Diabetes - Pre- diabetes - Social History Occupation: Retired Alcohol Use: 5 days per week Alcohol Amount: 1 glass of wine Substance Use Type: Reports: None Smoking Status (MU): Never Smoked Tobacco Have You Smoked in the Last Year: No Review of Systems Negative: Skin Diaphoresis Negative: Dental Pain Cardiovascular: Negative - Chest tingling Positive: Chest Pain Negative: Shortness Of Breath Positive: Other - Left arm pressure Neurological/Mental Status: Other - Auras Positive: Headache, Paresthesia - Left fingers, left side of her face All Other Systems Reviewed And Are Negative: Yes Physical Exam - Summary Physical Exam Summary: Vital Signs Reviewed: Yes A+Ox3, no distress, pleasant Eyes: Conjunctiva Clear, D[place]TON. EOM intact and full ENT: Hearing grossly normal TM x 2 clear, mmoist, uvula midline, no exudate, no erythema Neck: Positive: Supple no spinous process pain c/t/l/s Pt with mild "stretching" feeling of neck with flexion - states basline, no change in paresthesia Respiratory: Positive: No respiratory distress, No accessory muscle use + CTA throughout no w/r Cardiovascular: RRR nl s1, s2 no m/r CBT <2 sec abd soft + BS nt/nd no guarding, no distension Musculoskeletal Exam: RESENDIZ x 4 without difficulty Strength Intact 5/5 against resistance ROM Intact Psychological: Positive: Normal Response To examiner Skin: Positive: no rash, no ecchymosis CN 2-12 intact and full + FNF b/l + heel/mahan b/l 5/5 abduction, flex/ext elbow, wrist against resistant 5/5 SLE, flex/ext knee, ankle + great toe extension + pt reports slight decreasd in sensatoin intensity LUE - prox medial humerus and dorsum forearm, slight decrease sensatoiin inferior to left zygomatic arch ambulatory without difficulty Triage Information Reviewed: Yes Vital Signs On Initial Exam: Initial Vitals Temp Pulse Resp BP Pulse Ox 97.1 F 80 16 148/100 100 01/08/20 11:09 01/08/20 11:09 01/08/20 11:09 01/08/20 11:09 01/08/20 11:09 Vital Signs Reviewed: Yes Procedures - Sedation Patient Received Moderate/Deep Sedation with Procedure: No Diagnostics - Vital Signs Vital Signs Temp Pulse Resp BP Pulse Ox 01/08/20 11:09 97.1 F 80 16 148/100 100 - Laboratory Result Diagrams: 01/08/20 12:41 01/08/20 12:41 Lab Statement: Any lab studies that have been ordered have been reviewed, and results considered in the medical decision making process. - Radiology Chest x-ray Radiology Interpretation Completed By: Radiologist Summary of Radiographic Findings: No radiographic evidence of acute cardiopulmonary disease. ED physician has reviewed this report. - CT Brain CT CT Interpretation Completed By: Radiologist Summary of CT Findings: No evidence of intracranial mass or hemorrhage is noted. ED physician has reviewed this report. Head CTA CT Interpretation Completed By: Radiologist Summary of CT Findings: 1. No large vessel occlusion, severe stenosis or aneurysm in the brain. 2. No acute occlusive disease or severe stenosis in the neck. ED physician has reviewed this report. - EKG 12:32 Cardiac Rate: NL - 66 BPM EKG Rhythm: Sinus Rhythm Summary of EKG Findings: Flat T-Waves in lead 3, no STEMI. ED physician has reviewed and interpreted this EKG. National Institutes Of Health - NIH Scale Level of Consciousness: Alert/Keenly Responsive Ask Patient the Month and His/Her Age: Both Correct Ask Pt to Open/Close Eyes and Set Up Operator/Release Non-Paretic Hand: Both Correctly Best Gaze (Only Horizontal Eye Movement): Normal Visual Field Testing: No Visual Loss Facial Paresis-Pt to Smile & Close Eyes or Grimace Symmetry: Normal/Symmetrical Motor Function - Right Arm: No Drift-Holds 10 Seconds Motor Function - Left Arm: No Drift-Holds 10 Seconds Motor Function - Right Leg: No Drift-Holds 10 Seconds Motor Function - Left Leg: No Drift-Holds 10 Seconds Limb Ataxia-Must be out of Proportion to Weakness Present: Absent Sensory (Use Pinprick to Test Arms/Legs/Trunk/Face): Pinprick Less on Affected Best Language (Describe Picture, Name Items): No Aphasia Dysarthria (Read Several Words): Normal Extinction and Inattention: No Abnormality Total Score: 1 Re-Evaluation - Re-Evaluation First Eval Comment: Spoke with Dr. Moore - recommend CTA - will complet consult on pt - could represent pure sensory stroke vs cerival radiculopathy Second Eval Comment: CTA without acute findings. Dr. Moore consultcomplete. recommen 81mgASA daily, recommend f/u with cardiology and PCP. return precautions. Dr. Moore office ot call for follow-up appt. Pt comfort and in agreement with plan. return precautions discussed Complex Multi-Symp Course/Dx Course Of Treatment: Patient presents to urgent care for evaluation of left upper surgery sensory changes. Patient is left-hand dominant woman who status post breast cancer with radiation on the left as well as a pacemaker in the left upper anterior chest wall. Patient states she's been doing some gardening over the last couple days. Patient states last night she was walking outside to look at the moment when she developed a pressure squeezing feeling in her left upper arm and feeling of tired ache in her left forearm. Patient states she also had some mild left anterior chest wall pain that quickly resolved. Patient states when she went to bed she noticed some paresthesias of her left face lower half. Patient states this morning although symptoms have improved but not resolved with the exception of the chest discomfort that has not recurred. Patient denies any shortness of breath. Patient did take an aspirin yesterday and today. Spoke to her PCP office who recommended she come here. On exam NIH scale of one for the sensory changes on the left summary. EKG not concerning. We'll check one troponin. We'll do chest x-ray and labs. We'll do CT noncontrast. Also discussed with Dr. Moore regarding CTA and further evaluation. Patient comfortable and agreeable with plan we'll closely monitor. - Diagnoses Provider Diagnoses: Paresthesia of left arm - Physician Notifications Discussed Care Of Patient With: Cruz Moore Instructed by Provider To: Other - Discussed with Dr. Moore who recommended a CTA of the head and neck. Discharge ED - Sign-Out/Discharge Documenting (check all that apply): Patient Departure - Discharge Plan Condition: Stable Disposition: HOME Patient Education Materials: Transient Ischemic Attack (ED), Cervical Radiculopathy (ED) Referrals: Cruz Moore MD [Medical Doctor] - Pinky Earl MD [Primary Care Provider] - Additional Instructions: - The neurologist who evaluated you today thinks your symptoms may be related to a small sensory stroke or related to pinched nerve in your neck region. The following is recommended: - Take 81mg Aspirin daily starting tomorrow - Schedule a follow-up appointment with your primary care provider and with your traffic monitor specialist - Dr. Moore's office will contact you to schedule a follow-up visit If you develop any new or concerning symptoms - shortness of breath, extremity weakness, confusion or any other concerns it is recommended you contact your provide or return to the emergency department - Billing Disposition and Condition Condition: STABLE Disposition: Home - Attestation Statements Document Initiated by Stone: Yes Documenting Scribe: Anastasiya Keller Provider For Whom Elidiaibe is Documenting (Include Credential): Debra Rodriguez MD Scribe Attestation: Anastasiya Barton, scribed for Debra Rodriguez MD on 01/08/20 at 1825. Scribe Documentation Reviewed: Yes Provider Attestation: The documentation as recorded by the Anastasiya oakes accurately reflects the service I personally performed and the decisions made by me, Debra Rodriguez MD Status of Scribe Document: Viewed
[2020-01-08 12:54] LABS: ABS Lymphocytes 0.9 10^3/ul (1.0-4.8); ABS Monocytes 0.2 10^3/ul (0-0.8); ABS Neutrophils 2.5 10^3/ul (1.5-7.7); Eosinophil % 0.6 %; Hematocrit 41 % (35-47); Hemoglobin 14.4 g/dL (12.0-16.0); Lymphocyte % 25.1 %; Mean Corpuscular HGB Conc 35 g/dL (31-36); Mean Corpuscular Hemoglobin 34 pg (27-31); Mean Corpuscular Volume 97 fL (80-97); Mean Platelet Volume 7.6 fL (7.4-10.4); Platelet Count 205 10^3/uL (150-450); Red Blood Count 4.26 10^6 /uL (3.70-4.87); Red Cell Distribution Width 12 % (10-15); White Blood Count 3.6 10^3/uL (3.5-10.8)
[2020-01-08 13:04] LABS: Urine Appearance Clear; Urine Bilirubin Negative (Negative); Urine Blood Negative (Negative); Urine Color Straw; Urine Glucose Negative (Negative); Urine Ketones Negative (Negative); Urine Nitrite Negative (Negative); Urine Protein Negative (Negative); Urine Specific Gravity 1.003 (1.010-1.030); Urine Urobilinogen Negative (Negative)
[2020-01-08 13:17] LABS: Albumin 4.3 g/dL (3.2-5.2); Albumin/Globulin Ratio 1.8 (1-3); Calcium 10.2 mg/dL (8.6-10.3); EGFR African American 89.7 (>60); EGFR Non-African American 74.1 (>60); Globulin 2.4 g/dL (2-4); Magnesium 2.1 mg/dL (1.9-2.7); Potassium 3.7 mmol/L (3.5-5.0); Total Bilirubin 1.1 mg/dL (0.2-1.0); Total Protein 6.7 g/dL (6.4-8.9)
[2020-01-08] MEDS ORDERED: Iohexol 350* (CONTRAST) 500 ML MDV IV ONE (13:24)
[2020-01-08] MEDS ORDERED: NS 0.9% 1000 ML** 1,000 ML IV SCH (13:30)
[2020-01-08 15:33] VITALS: BP 139/75
--- NOTE | 2020-01-08 18:08 | CONS ---
CC: Dr. Henderson NEUROLOGY CONSULTATION: DATE OF CONSULT: 01/08/20 LOCATION: She is in the emergency room. REFERRING PROVIDER: Dr. Debra Rodriguez. CHIEF COMPLAINT: Numbness. HISTORY OF PRESENT ILLNESS: Chelita Fine is a 69-year-old left-handed woman who was in her usual state of health last evening when she went out to look at the full marin. While out, she noticed a pressure sensation in her left upper arm like a blood pressure cuff. She noted a more subtle sense of numbness or more likely a tightness in her left hand. She did not think too much of it at first , but it persisted. She went in the house and it persisted into the night. She was able to sleep alright, but when she woke up this morning she had a more subtle sense of numbness and tightness in the proximal left arm and a little bit in the left forearm and hand. She also noted this morning, not present last night, a slight pressure sensation near the left cheekbone. I believe she called her PCP and then she came to the emergency room for evaluation. Her symptoms in the arm have continued since last evening, but are more subtle. She has no symptoms in either leg or the right arm. The symptoms in the left cheekbone just started this morning. She has not noticed any weakness or clumsiness of the limbs and no difficulty walking. She has not noticed any change in vision, speech, or difficulty swallowing. She does not have a headache. There is no prior history of cerebrovascular problems. She has a history of migrainous aura, which began about 7 or 8 years ago. She sees zig-zaggy flickering lines in her vision, which is in both eyes, but often more to the left side. It usually lasts about 15 or 20 minutes and then resolves. After that, she may get a dull headache. She did not have problems with migraines or auras prior to about 10 years ago. She has never had any sensory symptoms associated with the aura. PAST MEDICAL HISTORY: Notable for hypertension. She does report that she had a lumpectomy and radiation therapy for breast cancer a couple of years ago. She has a pacemaker. She was having palpitations and had a cardiac evaluation and had a pause long enough to recommend a pacemaker. There is no history of diabetes and she is a nonsmoker. She has not had her cholesterol checked in a while, but to her recollection she has not been advised to be treated for hyperlipidemia. MEDICATIONS: Her only medication at home is amlodipine. She does take vitamins. ALLERGIES: She does not have any drug allergies. FAMILY HISTORY: Noncontributory. SOCIAL HISTORY: She does not smoke. She is retired from [employer]. She drinks a glass of wine several days a week. REVIEW OF SYSTEMS: Negative for diabetes, heart disease, weight loss, fevers, shortness of breath, chest pain, intestinal issues, or balance problems. She does have some neck tightness and discomfort, but no new neck pain. Additional review of systems is that she was having problems with visual auras, which had increased recently. This led to a CAT scan of the brain done here in [place] a few months ago interpreted as normal. She then went to [place] and had an MRI scan, I believe at [facility] and she was verbally told that was normal. It was done at [facility] because of her cardiac pacer. In looking through the records, she also had a brain CT in March of 2016 with indication being pressure behind the left eye and vertigo. PHYSICAL EXAM: She is well nourished and well hydrated. Temperature 97.1, blood pressure is 148/100 initially, heart rate is about 70 and regular. Heart tones are normal without murmurs. Lungs are clear anterolaterally. There are no cervical bruits. On neurological exam, pupils, fundi, and eye movements are normal. Visual israel are full to confrontation. Facial musculature is symmetric. Facial sensation to light touch and pin is symmetric as well. Speech is clear without dysarthria. Hearing is intact. On sensory exam in the limbs, there is intact and symmetrical light touch and pin discrimination in the upper and lower extremities. There is intact and symmetrical vibration sense in the toes and fingers bilaterally. On motor exam, she has normal muscle tone and strength proximally and distally in the upper and lower extremities. There is no drift of any limb. There is no rest tremor. Finger taps are normal in the hands. [id number] maneuver is normal bilaterally. [id number] maneuver is normal bilaterally. Reflexes are intact and symmetric at the brachioradialis, knees, and ankles. Plantar responses are flexor bilaterally. Gait was not tested. She is alert and oriented and a good detailed historian. Memory is intact and language is fluent. She has adequate attention, concentration, and fund of knowledge. DIAGNOSTIC STUDIES/LAB DATA: Includes a CT scan of the brain interpreted as normal. I reviewed the images personally and I agree. Laboratory data is notable for a normal CBC, chemistry profile is notable for nonfasting glucose of 101 and otherwise a normal chemistry profile. Lipid profile in the electronic medical record is from 2011, at which time her cholesterol was 219 and LDL 252. IMPRESSION AND PLAN: Impression is that of some left arm numbness, which is fairly subtle and a completely normal exam. She has a little bit of a pressure sensation in her left cheekbone, but no other sensory symptoms. Her neurological exam is normal and her CT scan of the brain is normal. She may have a cerebrovascular event, but if so it is very limited and very subtle. Alternative diagnosis would be a cervical radiculopathy. We talked about the possibility of migraine sensory aura, but her symptoms are too persistent to fit that diagnosis. She reports that she was told she cannot have an MRI scan in our institution and that she had to go to [facility] for one just a few months ago. I think the likelihood of this being cerebrovascular is low enough that she does not need to be admitted. If her symptoms persist, then I could try to arrange for a second MRI scan to be done either here in [place] or in [facility] in the next week or two. She took an aspirin 324 mg at home. I think it is reasonable to continue aspirin 81 mg a day for now. I will arrange to make a followup visit in my office or via telemedicine because of the pandemic in the next week or so to see if she is still having symptoms or not. I advised her to contact Dr. Henderson' s office who is her architectural sales consultant as he may want to recheck her in terms of cardioembolic risks. Again, I think if this is a cerebrovascular event, it is very limited and much more likely a small vessel lesion than an embolic or large vessel lesion. In addition, there is no evidence of large vessel disease on her CT angiogram. She will be discharged to home, take aspirin 81 mg per day, contact Dr. Henderson for followup, and I will arrange for followup in my office. [id number]/[facility] #: [id number] [facility] STATE HOSPITALRoberto Carlos
== END 2020-01-08 15:33 | disposition home or self-care (01) ==
LOC: ED 11:07
DX: R20.2 Paresthesia of skin (principal); R51 Headache; R07.9 Chest pain, unspecified; Z79.899 Other long term (current) drug therapy; Z95.0 Presence of cardiac pacemaker; Z85.3 Personal history of malignant neoplasm of breast; Z86.79 Personal history of other diseases of the circulatory system
CPT/HCPCS: 36415; 70450; 70496; 70498; 71046; 80053; 81003; 83735; 84484; 85025; 93005; 99282; Q9967